=== PATIENT | male | born 1995 | race Caucasian/White ===

== ENCOUNTER 2016-12-29 05:40 | Emergency (ER) | payer OTHER ==
[~2016-12-29] VITALS: Ht 180.3 cm; Wt 84.0 kg
[2016-12-29 05:56] VITALS: BP 150/85; PULSE 118; RESP 18; O2SAT 96
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
[2016-12-29 07:31] VITALS: BP 130/57; PULSE 112; RESP 18; O2SAT 97
== END 2016-12-29 11:32 | disposition home or self-care (01) ==
LOC: NEPC 05:40
DX: F10.129 Alcohol abuse with intoxication, unspecified (principal)
CPT/HCPCS: 99283